=== PATIENT | male | born 1980 | race Caucasian/White ===

== ENCOUNTER 2016-11-17 21:03 | Emergency (ER) | payer OTHER ==
[~2016-11-17] VITALS: Ht 177.8 cm; Wt 79.5 kg
[2016-11-17] MEDS ORDERED: PROPARACAINE HCL 0.5% 15 ML OPHTHALMIC SOLUTION OS ONE (22:15)
[2016-11-17] MEDS ORDERED: HYDROCODONE/ACETAMINOPHEN 5-325 MG TABLET PO ONE (23:15)
[2016-11-17] MEDS ORDERED: BACITRACIN 3.5 GM OPHTHALMIC OINTMENT OS ONE (23:15)
[2016-11-17] MEDS ORDERED: ERYTHROMYCIN 0.5% 3.5 GM TUBE OPHTHALMIC OINTMENT OS ONE (23:30)
[2016-11-17 23:47] VITALS: BP 128/75
== END 2016-11-17 23:48 | disposition home or self-care (01) ==
LOC: EMS 21:04
DX: T15.02XA Foreign body in cornea, left eye, initial encounter (principal); S05.02XA Injury of conjunctiva and corneal abrasion without foreign body, left eye, initial encounter; F12.90 Cannabis use, unspecified, uncomplicated; F17.210 Nicotine dependence, cigarettes, uncomplicated; X58.XXXA Exposure to other specified factors, initial encounter; Y93.89 Activity, other specified; Y92.89 Other specified places as the place of occurrence of the external cause; Y99.8 Other external cause status
CPT/HCPCS: 65222; 99284; 99406

== ENCOUNTER 2021-11-09 16:59 | Emergency (ER) | payer MEDICAID, OTHER ==
[~2021-11-09] VITALS: Ht 180.3 cm; Wt 97.7 kg
[2021-11-09 17:09] VITALS: BP 141/69
== END 2021-11-09 18:29 | disposition left against medical advice (07) ==
LOC: EMS 16:59
DX: M79.89 Other specified soft tissue disorders (principal); Z53.21 Procedure and treatment not carried out due to patient leaving prior to being seen by health care provider

== ENCOUNTER 2022-05-20 19:03 | Emergency (ER) | payer OTHER ==
[~2022-05-20] VITALS: Ht 170.2 cm; Wt 78.0 kg
[2022-05-20 19:33] VITALS: BP 128/64
[2022-05-20] MEDS ORDERED: ACETAMINOPHEN 500 MG TABLET PO ONE (19:45)
[2022-05-20] MEDS ORDERED: IBUPROFEN 600 MG TABLET PO ONE (19:45)
== END 2022-05-20 21:03 | disposition home or self-care (01) ==
LOC: EMS 19:03
DX: S82.002A Unspecified fracture of left patella, initial encounter for closed fracture (principal); F17.210 Nicotine dependence, cigarettes, uncomplicated; F15.90 Other stimulant use, unspecified, uncomplicated; W19.XXXA Unspecified fall, initial encounter; Y93.89 Activity, other specified; Y92.89 Other specified places as the place of occurrence of the external cause; Y99.8 Other external cause status
CPT/HCPCS: 29505; 99283

== ENCOUNTER 2023-10-24 23:48 | Emergency (ER) | payer OTHER ==
[~2023-10-24] VITALS: Ht 177.8 cm; Wt 90.9 kg
[2023-10-25 01:30] VITALS: BP 127/70; PULSE 78; RESP 18; TEMP 98.6
== END 2023-10-25 05:13 | disposition left against medical advice (07) ==
LOC: EMS 23:48
DX: R22.42 Localized swelling, mass and lump, left lower limb (principal); Z53.21 Procedure and treatment not carried out due to patient leaving prior to being seen by health care provider